=== PATIENT | male | born 1985 | race Caucasian/White ===

== ENCOUNTER 2017-08-28 11:30 | Outpatient (CLI) | payer OTHER ==
--- NOTE | 2017-08-28 12:40 | Diagnostic Imaging Report ---
Indication: Cough Technique: 2 views of the chest Comparison: none. Findings: Lungs and pleural spaces are clear. Heart size is normal. Bones are unremarkable.. Impression: No acute process
== END 2017-08-28 13:30 | disposition home or self-care (01) ==
LOC: RAD 11:30
DX: R05 Cough (principal)
CPT/HCPCS: 71046